=== PATIENT | male | born 1960 | race Caucasian/White ===

== ENCOUNTER 2018-01-23 06:24 | Outpatient (CLI) | payer BC ==
--- NOTE | 2018-01-23 09:31 | ULT ---
COMPLETE ABDOMINAL ULTRASOUND: Date: 01/23/18 COMPARISON: None. HISTORY: Hepatosplenomegaly and abdominal pain. TECHNIQUE: Multiplanar Montilla scale and color Doppler images were obtained in a complete abdominal ultrasound. FINDINGS: The liver is normal in echogenicity without focal lesions or intrahepatic ductal dilatation. The live r measures 14.5 cm in length. The gallbladder is normal without stones, sludge, gallbladder wall thickening, or pericholecystic flu id. Common bile duct is normal measuring 3.0 mm. The aorta and inferior vena cava are normal in caliber. The visualized portions of the pancreas are u nremarkable. The spleen is normal in echogenicity without focal lesions and measures 8.7 cm in length . Both kidneys are normal in echogenicity without hydronephrosis or calculi and measure 11.2 and 11.4 c m in length on the right and left, respectively. IMPRESSION: Unremarkable exam. POS: [facility]
== END 2018-01-23 06:25 | disposition home or self-care (01) ==
LOC: SCSULT 06:24
PROVIDERS: ATTEND Internal Medicine Medical Oncology
DX: R16.1 Splenomegaly, not elsewhere classified (principal); D50.8 Other iron deficiency anemias; T45.4X5A Adverse effect of iron and its compounds, initial encounter
CPT/HCPCS: 76700